=== PATIENT | male | born 1975 | race Caucasian/White ===

== ENCOUNTER 2024-11-22 08:18 | Day surgery (SDC) | payer MEDICAID ==
[2024-11-21 15:22] VITALS: BMI 15.6
[2024-11-22] MEDS ORDERED: Bupivacaine HCl 0.5%/Epinephrine 1:200,000/PF 30 ml Vial ONE (09:48)
[2024-11-22] MEDS ORDERED: CEFAZOLIN 2 GM VIAL ONE (10:19)
[2024-11-22] MEDS ORDERED: PROPOFOL 20 ML ONE (10:19)
[2024-11-22] MEDS ORDERED: Lidocaine 1% PF 5 ML VIAL ONE (10:20)
[2024-11-22] MEDS ORDERED: Ondansetron PF 4 MG/2 ML Vial ONE (10:46)
== END 2024-11-22 12:30 | disposition home or self-care (01) ==
LOC: CSHSDC 08:18
PROVIDERS: ATTEND Surgery
PROC: 0JH60WZ Insertion of Totally Implantable Vascular Access Device into Chest Subcutaneous Tissue and Fascia, Open Approach (ICD-10-PCS; principal; 2024-11-22)
DX: C25.2 Malignant neoplasm of tail of pancreas (principal); C78.7 Secondary malignant neoplasm of liver and intrahepatic bile duct; E11.9 Type 2 diabetes mellitus without complications; F17.200 Nicotine dependence, unspecified, uncomplicated; Z88.5 Allergy status to narcotic agent
CPT/HCPCS: 71045; A6258; C1788; J1100; J1642; J2704